=== PATIENT | male | born 1970 | race Caucasian/White ===

== ENCOUNTER 2016-06-06 20:03 | Emergency (ER) | payer OTHER ==
[2016-06-06 20:24] VITALS: BP 137/88; PULSE 96; O2SAT 100
[2016-06-06 21:01] LABS: BASOPHIL % 0.2 % (0.0-0.4); Eosinophil % 1.5 % (0.00-5.0); Granulocytes % 67.5 % (36.0-66.0); Lymphocytes % 21.4 % (24.0-44.0); Mean Cell Volume 93.1 fl (78-100); Mean Platelet Volume 9.9 fl (6-9.5); Monocytes % 9.4 % (0.0-12.0); Platelet Count 296 K/mm3 (150-450); Red Blood Count 4.35 M/mm3 (4.1-5.6); Red Cell Distribution Width 13.2 % (11.5-14.0); White Blood Count 10.9 K/mm3 (4.0-10.5)
[2016-06-06] MEDS ORDERED: MORPHINE SULFATE 10 MG/ML IV ONE (21:02)
[2016-06-06] MEDS ORDERED: Adacel Vial IM ONE ×2 (21:02→21:11)
[2016-06-06] MEDS ORDERED: XYLOCAINE 1%/Epi 1:100000 MDV 20 ML IJ ONE (21:02)
[2016-06-06] MEDS ORDERED: Vibramycin 100 MG PO ONE (21:02)
[2016-06-06] MEDS ORDERED: BENADRYL 50 MG/ML IV ONE (21:02)
[2016-06-06] MEDS ORDERED: Vibramycin 100 MG ONE (21:09)
[2016-06-06] MEDS ORDERED: XYLOCAINE 1%/Epi 1:100000 MDV 20 ML ONE (21:09)
[2016-06-06] MEDS ORDERED: BENADRYL 50 MG/ML ONE (21:09)
[2016-06-06] MEDS ORDERED: MORPHINE SULFATE 10 MG/ML ONE (21:10)
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
[2016-06-06 21:15] LABS: ALBUMIN 4.1 g/dL (3.4-5.0); ALKALINE PHOSPHATASE 55 U/L (46-116); BILIRUBIN,TOTAL 0.3 mg/dL (0.2-1.0); BLOOD UREA NITROGEN 9 mg/dL (9-20); CHLORIDE 102 mEq/L (98-107); Carbon Dioxide 29.3 mEq/L (21-32); Glucose 98 MG/DL (70-110); Potassium 3.5 mEq/L (3.5-5.1); SGOT/AST 16 U/L (15-37); SGPT/ALT 16 U/L (12-78); SODIUM 142 mEq/L (136-145)
[2016-06-06] MEDS ORDERED: NORCO 5/325 MG PO ONE (21:59)
[2016-06-06] MEDS ORDERED: BACIGUENT PACKET ONE (22:18)
[2016-06-06] MEDS ORDERED: NORCO 5/325 MG ONE (22:19)
[2016-06-06] MEDS ORDERED: BACIGUENT PACKET TP ONE (22:29)
--- NOTE | 2016-06-07 08:47 | XRAY ---
Indication: Cutaneous abscess. Comparison: None AP/lateral right knee intact with posterior fabella. No other bony, articular, or soft tissue abnormalities.
== END 2016-06-06 22:30 | disposition home or self-care (01) ==
LOC: ED 20:03
PROC: 0H9KXZZ Drainage of Right Lower Leg Skin, External Approach (ICD-10-PCS; principal; 2016-06-06)
DX: L02.415 Cutaneous abscess of right lower limb (principal)
CPT/HCPCS: 10160; 36000; 36415; 73560; 80053; 83605; 85025; 87040; 87070; 87077; 87186; 90471; 90715; 96374; 96375; 99284; J1200; J2270; A9270-GY

== ENCOUNTER 2016-12-28 00:02 | Emergency (ER) | payer OTHER ==
[2016-12-28] MEDS ORDERED: Xylocaine 2%-Epi 1:100,000 MDV IJ ONE ×2 (00:20→00:43)
[2016-12-28] MEDS ORDERED: BACTRIM DS TABLET PO ONE ×2 (00:20→00:42)
[2016-12-28] MEDS ORDERED: NORCO 5/325 MG PO ONE (00:22)
[2016-12-28] MEDS ORDERED: NORCO 5/325 MG ONE (00:43)
--- NOTE | 2016-12-28 00:43 | ERPHSYRPT ---
- History of Present Illness Time Seen by Provider: 12/28/16 00:04 Source: patient Patient Subjective Stated Complaint: pt states he has an abcess under his lt arm Triage Nursing Assessment: pt alert and oriented, asnwers questions approp. pt ambultory with steady gait noted, respirations nonlabored with lungs cta. red raised area with white center under lt axilla, warmth and tenderness noted to area. Physician History: CC: boil Hx: 46 y/o patient with hx of boils. He has new boil in the left chest wall. He has popped it off and on. It is more red and sore. Tetanus up to date. No other complaints. No fever. His knee heeled well after I&D thru ER. Quality: painful Allergies/Adverse Reactions: tramadol Allergy (Verified 12/28/16 00:13) Hx Tetanus, Diphtheria Vaccination/Date Given: Yes (2016) Hx Influenza Vaccination/Date Given: No Hx Pneumococcal Vaccination/Date Given: No Immunizations Up to Date: Yes - Review of Systems Constitutional: No Fever Skin: Skin Lesions (boils) Neurological: No Focal Weakness, No Parasthesia - Past Medical History Pertinent Past Medical History: Yes Cardiac History: Hypertension GI Medical History: Hernia Other Medical History: abcesses - Past Surgical History Past Surgical History: Yes Musculoskeletal: Orthopedic Surgery Other Surgical History: hx of fx lt arm - Social History Smoking Status: Current every day smoker How long have you smoked: 27 Exposure to second hand smoke: Yes Drug Use: none Patient Lives Alone: No - Nursing Vital Signs Nursing Vital Signs: Initial Vital Signs Temperature 97.8 F 12/28/16 00:06 Pulse Rate 89 12/28/16 00:06 Respiratory Rate 18 12/28/16 00:06 Blood Pressure 168/83 12/28/16 00:06 O2 Sat by Pulse Oximetry 97 12/28/16 00:06 Pain Scale Pain Intensity 8 - Physical Exam General Appearance: alert Ears, Nose, Throat Exam: moist mucous membranes Neurologic Exam: alert, oriented x 3, cooperative Skin Exam: warm, dry, other (1cm boil left lateral upper chest wall with mild erythema and pointing) SpO2 Interpretation: normal SpO2: 97 Oxygen Delivery: Room Air Procedures - Incision and Drainage Site: left lateral chest wall Anesthesia: 2% Lidocaine (with epi) cc's of anesthesia: 3 Blade Size: scalpel I & D Procedure: betadine prep, sterile dressing applied Results: moderate amount pus - Course Nursing assessment & vital signs reviewed: Yes Ordered Tests: Active Orders 24 hr Category Date Time Status Wound Care STAT Care 12/28/16 00:20 Active Medication Summary Discontinued Medications Generic Name Dose Route Start Last Admin Trade Name Freq PRN Reason Stop Dose Admin Hydrocodone Bitart/Acetaminophen 1 tab 12/28/16 00:22 12/28/16 00:44 [place] 5/325 Mg PO 12/28/16 00:23 1 tab STAT ONE Administration Hydrocodone Bitart/Acetaminophen Confirm 12/28/16 00:43 [place] 5/325 Mg Administered 12/28/16 00:44 Dose 1 tab .ROUTE .STK-MED ONE Lidocaine/Epinephrine 5 ml 12/28/16 00:20 Xylocaine 2%-Epi 1:100,000 Mdv IJ 12/28/16 00:21 STAT ONE Lidocaine/Epinephrine Confirm 12/28/16 00:43 Xylocaine 2%-Epi 1:100,000 Mdv Administered 12/28/16 00:44 Dose 5 ml IJ .STK-MED ONE Trimethoprim/Sulfamethoxazole 1 tab 12/28/16 00:20 12/28/16 00:44 Bactrim Ds Tablet PO 12/28/16 00:21 1 tab STAT ONE Administration Trimethoprim/Sulfamethoxazole Confirm 12/28/16 00:42 Bactrim Ds Tablet Administered 12/28/16 00:43 Dose 1 tab PO .STK-MED ONE - Progress Progress Note: 12/28/16 00:43 Discussed I&D. He understands risks and chose to proceed. Counseled pt/family regarding: diagnosis, need for follow-up - Departure Time of Disposition: 00:58 Departure Disposition: Home Clinical Impression: abscess left chest wall cutaneous Condition: Stable Critical Care Time: No Referrals: PORFIRIO AMARO [NON-STAFF PHY W/O PRIVILEGES] - Instructions: Methicillin-Resistant Staph Infection (MRSA), Incision and Drainage of a Skin Abscess Additional Instructions: Rx bactrim Warm compress 4 times a day Rx norco- no driving tonite or while taking Prescriptions: Hydrocodone/APAP 5/325 [[place] 5/325 mg] 1 each PO Q4-6HPRN PRN #10 tablet PRN Reason: Pain Smz/Tmp Ds Tablet [Bactrim Ds Tablet] 1 udtab PO BID #20 tablet
[2016-12-28 01:13] VITALS: BP 130/79; PULSE 82; O2SAT 96
== END 2016-12-28 01:14 | disposition home or self-care (01) ==
LOC: ED 00:02
PROC: 0H95XZZ Drainage of Chest Skin, External Approach (ICD-10-PCS; principal; 2016-12-28)
DX: L02.213 Cutaneous abscess of chest wall (principal)
CPT/HCPCS: 10060; 96372; 99283; 99284; A9270-GY

== ENCOUNTER 2017-01-29 21:58 | Emergency (ER) | payer OTHER ==
[2017-01-29] MEDS ORDERED: TYLENOL 325 MG PO STA (22:33)
[2017-01-29] MEDS ORDERED: TYLENOL 325 MG ONE (22:37)
--- NOTE | 2017-01-29 22:41 | ERPHSYRPT ---
- History of Present Illness Time Seen by Provider: 01/29/17 22:16 Source: patient Exam Limitations: clinical condition Patient Subjective Stated Complaint: pt states he has been having pain in his lt knee for approx 1 week that has been getting worse. states pain is stabbing and worse with pressure on lt leg Triage Nursing Assessment: pt alert and oriented, answers questions appop. pt ambultory with steady gait noted. respirations nonlabored with lungs cta. pedal pulse to lle wnl. Physician History: PATIENT COMPLAINS OF HAVING PAIN IN HIS LEFT KNEE FOR 3 WEEKS. DENIES INJURY OR TRAUMA. HAS PAIN ONLY WITH DIRECT PRESSURE KNEELING ONTO KNEE. AMBULATES WITHOUT PAIN. Occurred: other (3 WEEKS AGO) Quality: other (ONLY UPON KNEELING) Severity of Pain-Max: mild Severity of Pain-Current: mild Lower Extremities Pain: knee: left Modifying Factors: Improves With: other (DIRECT PRESSURE ONTO KNEE) Associated Symptoms: none Allergies/Adverse Reactions: tramadol Allergy (Verified 12/28/16 00:13) Hx Tetanus, Diphtheria Vaccination/Date Given: Yes (2016) Hx Influenza Vaccination/Date Given: No Hx Pneumococcal Vaccination/Date Given: No Immunizations Up to Date: Yes - Review of Systems Musculoskeletal: Joint Pain, Joint Swelling - Past Medical History Pertinent Past Medical History: Yes Cardiac History: Hypertension GI Medical History: Hernia Other Medical History: abcesses - Past Surgical History Past Surgical History: Yes Musculoskeletal: Orthopedic Surgery Other Surgical History: hx of fx lt arm - Social History Smoking Status: Current every day smoker How long have you smoked: 27 Exposure to second hand smoke: Yes Drug Use: none Patient Lives Alone: No - Nursing Vital Signs Nursing Vital Signs: Initial Vital Signs Temperature 97.8 F 01/29/17 22:09 Pulse Rate 86 01/29/17 22:09 Respiratory Rate 18 01/29/17 22:09 Blood Pressure 145/72 01/29/17 22:09 O2 Sat by Pulse Oximetry 97 01/29/17 22:09 Pain Scale Pain Intensity 8 - Physical Exam General Appearance: alert Eyes, Ears, Nose, Throat Exam: moist mucous membranes Neck Exam: non-tender, supple Cardiovascular/Respiratory Exam: chest non-tender, normal breath sounds, regular rate/rhythm, no respiratory distress Gastrointestinal/Abdominal Exam: non-tender, guarding Back Exam: normal inspection, No vertebral tenderness Knees Exam: left knee: pain, soft tissue tenderness, swelling (INFRAPATELLA TENDERNESS, MINIMAL SWELLING, NO JOINT LAXITY UPON VARUS./VALGUS STRESS) DTR - Lower Extremities Exam: knee (R): 2+, knee (L): 2+, ankle (R): 2+, ankle ( L): 2+ Neuro/Tendon Exam: normal sensation, normal motor functions Mental Status Exam: alert, oriented x 3, cooperative Skin Exam: normal color, warm, dry SpO2: 97 Oxygen Delivery: Room Air - Radiology Exams Left Knee X-ray Interpretation: Interpreted by me (NO EVIDENCE OF FRACTURE OR DISLOCATION) Ordered Tests: Active Orders 24 hr Category Date Time Status KNEE (3 VIEWS) Stat Exams 01/29/17 22:34 Ordered Medication Summary Generic Name Dose Route Start Last Admin Trade Name Leelee PRN Reason Stop Dose Admin Acetaminophen 650 mg 01/29/17 22:33 Tylenol 325 Mg PO 01/29/17 22:34 STAT STA - Progress Progress Note: 01/29/17 22:46 ADMINISTERED TYLENOL 650MG ORALLY Counseled pt/family regarding: diagnosis, need for follow-up - Departure Time of Disposition: 22:55 Departure Disposition: Home Clinical Impression: Left knee pain Condition: Stable Critical Care Time: No Referrals: RADHA BECKHAM [Primary Care Provider] - Additional Instructions: TORADOL 10MG EVERY 6 HOURS FOR PAIN NEEDED. FOR ONSET OF PAIN UPON WEIGHT BEARING OBTAIN CRUTCHES. CONSULT YOUR PRIMARY CARE PHYSICIAN FOR EVALUATION IN 1 WEEK. Prescriptions: Ketorolac Tromethamine [Toradol] 10 mg PO Q6HPRN PRN #20 tablet PRN Reason: Pain
[2017-01-29 22:59] VITALS: BP 132/70; PULSE 80; O2SAT 98
--- NOTE | 2017-01-30 09:04 | XRAY ---
Indication: Left knee pain 2 weeks. No known injury. Comparison: None 3 views of the left knee intact with tiny proximal tibial bone island and a posterior fabella. No other bony, articular, or soft tissue abnormalities.
== END 2017-01-29 22:55 | disposition home or self-care (01) ==
LOC: ED 21:58
DX: M25.562 Pain in left knee (principal)
CPT/HCPCS: 73562; 99283; A9270-GY

== ENCOUNTER 2019-05-13 11:50 | Emergency (ER) | payer SELFPAY ==
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
[2019-05-13] MEDS ORDERED: BACIGUENT PACKET TP ONE (12:16)
[2019-05-13] MEDS ORDERED: BACIGUENT PACKET ONE (12:18)
--- NOTE | 2019-05-13 13:12 | XRAY ---
Indication: Pain and laceration following head injury. Multiple contiguous axial images obtained through the head without contrast. Comparison: None Normal appearing brain parenchyma, ventricles, and bony calvarium. Small anterior scalp laceration with cutaneous justina near the vertex. Visualized paranasal sinuses are clear. There is partial opacification of the left middle ear favoring otitis media. Impression: Small scalp laceration and left otitis media. Remaining CT head without contrast exam is normal.
[2019-05-13 13:13] VITALS: BP 108/44; PULSE 60; O2SAT 97
== END 2019-05-13 13:14 | disposition home or self-care (01) ==
LOC: ED 11:50
DX: S01.01XA Laceration without foreign body of scalp, initial encounter (principal); H66.92 Otitis media, unspecified, left ear; I10 Essential (primary) hypertension
CPT/HCPCS: 12001; 70450; 99283; A9270-GY

== ENCOUNTER 2019-09-20 18:24 | Emergency (ER) | payer MEDICAID ==
--- NOTE | 2019-09-20 19:13 | ERPHSYRPT ---
- History of Present Illness Time Seen by Provider: 09/20/19 18:42 Source: patient Exam Limitations: no limitations Patient Subjective Stated Complaint: Pt states "I am not sure what I did, I noticed some bruising to my left ankle and it hurts pretty bad." Triage Nursing Assessment: Pt presented alert and oriented X 3, skin pwd. PT able to ambulates with an upright steady gait, able to speak in clear full sentences pt has bruising noted to left medial ankle no swelling noted. Physician History: 49 years old male with history of coronary artery disease status post stenting, hypertension, hyperlipidemia works on a [employer] with tight shoes on all day long presented in the ER with chief complaint of left ankle pain with some noticeable bruising on the medial side of the foot this evening. Patient reports he is on his feet all day long going up and down and is worried about getting a stress fracture. He reports noticing pain for the last couple of days mild to moderate intensity, dull aching to sharp in nature without any significant aggravating factor but at times it gets aggravated with putting shoes shoes on and better with taking off. Denies any swelling of the foot/ankle. Does not remember any trauma or fall, or bending foot. Denies any difficulty ambulation or gait change. Quality: intermittent Severity of Pain-Max: moderate Severity of Pain-Current: mild Lower Extremities Pain: ankle: left Modifying Factors: Improves With: immobilization, movement, rest Associated Symptoms: No unable to bear weight Allergies/Adverse Reactions: tramadol Allergy (Verified 12/28/16 00:13) Home Medications: Atorvastatin Calcium 80 mg PO DAILY 09/20/19 [History] Clopidogrel Bisulfate [Clopidogrel] 75 mg PO DAILY 09/20/19 [History] Loratadine 10 mg PO DAILY 09/20/19 [History] Metoprolol Tartrate 25 mg PO DAILY 09/20/19 [History] Montelukast Sodium 10 mg [Singulair 10 MG] 10 mg PO DAILY 09/20/19 [History] lisinopriL [Lisinopril] 5 mg PO DAILY 09/20/19 [History] Hx Tetanus, Diphtheria Vaccination/Date Given: Yes Hx Influenza Vaccination/Date Given: No Hx Pneumococcal Vaccination/Date Given: No Immunizations Up to Date: Yes Travel Risk - International Travel Have you traveled outside of the country in past 3 weeks: No - Coronavirus Screening Are you exhibiting any of the following symptoms?: No Close contact with a COVID-19 positive Pt in past 14-21 Days: No - Review of Systems Constitutional: No Symptoms Eyes: No Symptoms Ears, Nose, & Throat: No Symptoms Respiratory: No Symptoms Cardiac: No Symptoms Abdominal/Gastrointestinal: No Symptoms Musculoskeletal: Joint Pain Skin: No Symptoms Neurological: No Symptoms Psychological: No Symptoms - Past Medical History Pertinent Past Medical History: Yes Neurological History: No Pertinent History ENT History: No Pertinent History Cardiac History: Hypertension Respiratory History: No Pertinent History Endocrine Medical History: No Pertinent History Musculoskeletal History: No Pertinent History GI Medical History: Hernia History: No Pertinent History Psycho-Social History: No Pertinent History Male Reproductive Disorders: No Pertinent History Other Medical History: abcesses - Past Surgical History Past Surgical History: Yes Neuro Surgical History: No Pertinent History Cardiac: No Pertinent History Respiratory: No Pertinent History Gastrointestinal: No Pertinent History Genitourinary: No Pertinent History Musculoskeletal: Orthopedic Surgery Male Surgical History: No Pertinent History Other Surgical History: hx of fx lt arm - Social History Smoking Status: Former smoker How long have you smoked: 27 Exposure to second hand smoke: Yes Drug Use: none Patient Lives Alone: No - Nursing Vital Signs Nursing Vital Signs: Initial Vital Signs Temperature 98.4 F 09/20/19 18:29 Pulse Rate 80 09/20/19 18:29 Respiratory Rate 22 09/20/19 18:29 Blood Pressure 129/70 09/20/19 18:29 O2 Sat by Pulse Oximetry 98 09/20/19 18:29 Pain Scale Pain Intensity 6 - Physical Exam General Appearance: no apparent distress Eyes, Ears, Nose, Throat Exam: pharynx normal Neck Exam: normal inspection, full range of motion Cardiovascular/Respiratory Exam: normal breath sounds, regular rate/rhythm Back Exam: normal inspection, normal range of motion Legs Exam: bilateral leg: non-tender, normal inspection, normal range of motion, no evidence of injury Ankle Exam: right ankle: non-tender, normal inspection, no evidence of injury, left ankle: pain, soft tissue tenderness, other (Bruising on the medial side of calcaneum/talus/navicular area with minimal tenderness. No swelling. Possible spider veins busted), bilateral ankle: normal range of motion Neuro/Tendon Exam: normal sensation, normal motor functions, normal tendon functions Mental Status Exam: alert, oriented x 3 Skin Exam: normal color SpO2 Interpretation: normal SpO2: 98 O2 Delivery: Room Air - Course Nursing assessment & vital signs reviewed: Yes Ordered Tests: Active Orders 24 hr Category Date Time Status ANKLE (3 VIEWS) Stat Exams 09/20/19 18:40 Taken - Progress Progress: unchanged Progress Note: 09/20/19 19:17 He is offered pain medication but refused. I did not appreciate any acute fracture dislocation. Patient does not have any point bony tenderness but has some bruising which I believe patient has but states spider veins and also because of tight shoes is having some compression and being on Plavix makes it easy to bruise. Recommended taking Tylenol/ibuprofen and outpatient follow-up. Counseled pt/family regarding: diagnosis, need for follow-up, rad results - Departure Departure Disposition: Home Clinical Impression: Left ankle pain Qualifiers: Chronicity: acute Qualified Code(s): M25.572 - Pain in left ankle and joints of left foot Condition: Stable Critical Care Time: No Referrals: RADHA BECKHAM [Primary Care Provider] - Follow Up with PCP/3 days Instructions: Ankle Sprain (DC) Additional Instructions: Take Tylenol/ibuprofen as needed. Follow-up with your primary care for reevaluation. Return to ER for any worsening.
[2019-09-20 19:33] VITALS: BP 100/60; PULSE 68; O2SAT 99
--- NOTE | 2019-09-21 08:37 | XRAY ---
Indication: Pain and bruising. No known injury. Comparison: None 3 view left ankle obtained. No bony, articular, or soft tissue abnormalities.
== END 2019-09-20 19:38 | disposition home or self-care (01) ==
LOC: ED 18:24
DX: Z79.899 Other long term (current) drug therapy (principal); S90.02XA Contusion of left ankle, initial encounter; I25.810 Atherosclerosis of coronary artery bypass graft(s) without angina pectoris; I10 Essential (primary) hypertension; E78.5 Hyperlipidemia, unspecified; X50.3XXA Overexertion from repetitive movements, initial encounter; X50.0XXA Overexertion from strenuous movement or load, initial encounter; Y93.89 Activity, other specified; Y92.89 Other specified places as the place of occurrence of the external cause; Y99.0 Civilian activity done for income or pay
CPT/HCPCS: 73610; 99283

== ENCOUNTER 2020-06-27 14:57 | Emergency (ER) | payer SELFPAY ==
[2020-06-27] MEDS ORDERED: TORAdol 30 mg Injection IV ONE (15:17)
[2020-06-27] MEDS ORDERED: Sodium Chloride 0.9% 1000 ML 1,000 ML IV STA (15:17)
[2020-06-27] MEDS ORDERED: Norflex 60 MG/2 ML IV ONE (15:18)
--- NOTE | 2020-06-27 15:22 | ERPHSYRPT ---
- History of Present Illness Time Seen by Provider: 06/27/20 15:00 Source: patient Exam Limitations: no limitations Patient Subjective Stated Complaint: Pt states that he has become very fatigue, nauseous, cramp in the left side of neck, cough and wheezing Triage Nursing Assessment: Pt brought to the ER by his girlfriend, laila wnl, rates pain in neck as 9/10, cough sputum had been green and is now white, pulses normal, skin n/w/d, denies fever, doesn't appear to be in any distress Physician History: 50 years old male with history of coronary artery disease status post stenting, hypertension, hyperlipidemia, tobacco abuse presented in the ER with chief complaint of flulike symptoms for the last 4 days. Patient reports generalized body aches and pains which is aggravated with activity and feeling fatigued tir ed and no energy to do his routine activities. Patient reports walking few steps make him tired as if he has 10 miles marathon run. Complaining of muscle cramps specially in the left lateral neck and back. Also report having cough productive of clear to yellow sputum initially but since yesterday is having dark green sputum production moderate in amount with no hemoptysis. No fever or chills reported. Denies any sick contact. Timing/Duration: day(s) (4), gradual onset, worse Cough Quality/Degree: moderate, productive cough Modifying Factors: Improves With: albuterol inhaler, rest. Worsens With: activity, coughing, exertion Associated Symptoms: chest pain/soreness, cough, headache, muscle aches, nasal congestion, sore throat, wheezing, No fever Allergies/Adverse Reactions: tramadol Allergy (Verified 06/27/20 15:14) Home Medications: Atorvastatin Calcium 80 mg PO DAILY 09/20/19 [History] Clopidogrel Bisulfate [Clopidogrel] 75 mg PO DAILY 09/20/19 [History] Loratadine 10 mg PO DAILY 09/20/19 [History] Metoprolol Tartrate 25 mg PO DAILY 09/20/19 [History] Montelukast Sodium 10 mg [Singulair 10 MG] 10 mg PO DAILY 09/20/19 [History] lisinopriL [Lisinopril] 5 mg PO DAILY 09/20/19 [History] Albuterol Sulfate [Albuterol Sulfate Hfa] 1 inh PO UD 06/27/20 [History] Aspirin 81 gm Chew [Baby Aspirin 81 mg Chew] 81 mg PO DAILY 06/27/20 [History] Hx Tetanus, Diphtheria Vaccination/Date Given: Yes Hx Influenza Vaccination/Date Given: No Hx Pneumococcal Vaccination/Date Given: No Travel Risk - International Travel Have you traveled outside of the country in past 3 weeks: No - Coronavirus Screening Are you exhibiting any of the following symptoms?: No Close contact with a COVID-19 positive Pt in past 14-21 Days: No - Vaccine Status Have you recieved a Covid-19 vaccination: No - Review of Systems Constitutional: Fatigue, Weakness Eyes: No Symptoms Ears, Nose, & Throat: Nose Congestion Respiratory: Cough, Dyspnea, Dyspnea on Exertion (MACIEL), Wheezing Cardiac: No Symptoms Abdominal/Gastrointestinal: No Symptoms Genitourinary Symptoms: No Symptoms Musculoskeletal: Myalgias Skin: No Symptoms Neurological: No Symptoms Psychological: No Symptoms Endocrine: No Symptoms Hematologic/Lymphatic: No Symptoms Immunological/Allergic: No Symptoms - Past Medical History Pertinent Past Medical History: Yes Neurological History: No Pertinent History ENT History: No Pertinent History Cardiac History: Hypertension Respiratory History: No Pertinent History Endocrine Medical History: No Pertinent History Musculoskeletal History: No Pertinent History GI Medical History: Hernia History: No Pertinent History Psycho-Social History: No Pertinent History Male Reproductive Disorders: No Pertinent History Other Medical History: abcesses - Past Surgical History Past Surgical History: Yes Neuro Surgical History: No Pertinent History Cardiac: No Pertinent History Respiratory: No Pertinent History Gastrointestinal: No Pertinent History Genitourinary: No Pertinent History Musculoskeletal: Orthopedic Surgery Male Surgical History: No Pertinent History Other Surgical History: hx of fx lt arm - Social History Smoking Status: Former smoker How long have you smoked: 27 Exposure to second hand smoke: Yes Drug Use: none Patient Lives Alone: No - Nursing Vital Signs Nursing Vital Signs: Initial Vital Signs Temperature 97.8 F 06/27/20 15:02 Pulse Rate 78 06/27/20 15:02 Blood Pressure 144/68 06/27/20 15:02 O2 Sat by Pulse Oximetry 98 06/27/20 15:02 Pain Scale Pain Intensity 2 - Physical Exam General Appearance: no apparent distress, alert Eye Exam: PERRL/EOMI, eyes nml inspection Ears, Nose, Throat Exam: normal ENT inspection, TMs normal, pharyngeal erythema Neck Exam: normal inspection, non-tender, supple, full range of motion, No midline tenderness Respiratory Exam: normal breath sounds, lungs clear, No chest tenderness Cardiovascular Exam: regular rate/rhythm, normal heart sounds Gastrointestinal/Abdomen Exam: soft, normal bowel sounds, No tenderness Back Exam: normal inspection, normal range of motion Extremity Exam: normal inspection, normal range of motion, pelvis stable Neurologic Exam: alert, oriented x 3, cooperative, medical staff coordinator II-XII nml as tested Skin Exam: normal color SpO2 Interpretation: normal SpO2: 98 O2 Delivery: Room Air - Course EKG Interpreted by Me: RATE (72), Sinus Rhythm, NORMAL AXIS, NORMAL INTERVALS, NORMAL QRS Ordered Tests: Active Orders 24 hr Category Date Time Status EKG-ER Only STAT Care 06/27/20 15:17 Completed IV Insertion STAT Care 06/27/20 15:17 Completed CHEST 1 VIEW (PORTABLE) Stat Exams 06/27/20 15:17 Completed CBC W DIFF Stat Lab 06/27/20 15:42 Completed CMP Stat Lab 06/27/20 15:42 Completed INFLUENZA A+B MARY LOU Stat Lab 06/27/20 16:36 Completed Lactic Acid Stat Lab 06/27/20 15:17 Completed TROPONIN Q3H Lab 06/27/20 15:42 Completed UA W/RFX UR CULTURE Stat Lab 06/27/20 15:50 Completed Medication Summary Discontinued Medications Generic Name Dose Route Start Last Admin Trade Name Kenanq PRN Reason Stop Dose Admin Sodium Chloride 1,000 mls @ 999 mls/hr 06/27/20 15:17 06/27/20 16:41 Sodium Chloride 0.9% 1000 Ml IV 06/27/20 16:17 Infused .Q1H1M STA Infusion Sodium Chloride Confirm 06/27/20 15:26 Sodium Chloride 0.9% 1000 Ml Administered 06/27/20 15:27 Dose 1,000 mls @ ud .ROUTE .STK-MED ONE Ketorolac Tromethamine 30 mg 06/27/20 15:17 06/27/20 15:28 Toradol 30 Mg Injection IV 06/27/20 15:18 30 mg STAT ONE Administration Ketorolac Tromethamine Confirm 06/27/20 15:26 Toradol 30 Mg Injection Administered 06/27/20 15:27 Dose 30 mg .ROUTE .STK-MED ONE Orphenadrine Citrate 60 mg 06/27/20 15:18 06/27/20 15:27 Norflex 60 Mg/2 Ml IV 06/27/20 15:19 60 mg STAT ONE Administration Orphenadrine Citrate Confirm 06/27/20 15:26 Norflex 60 Mg/2 Ml Administered 06/27/20 15:27 Dose 60 mg .ROUTE .STK-MED ONE Lab/Rad Data: Laboratory Result Diagrams 06/27/20 15:42 06/27/20 15:42 Laboratory Results 06/27/20 06/27/20 06/27/20 Range/Units 16:36 15:50 15:42 WBC (4.0-10.5) K/mm3 RBC (4.1-5.6) M/mm3 Hgb (12.5-18.0) gm/dl Hct (42-50) % MCV (78-100) fl MCH (26-32) pg MCHC (32-36) g/dl RDW (11.5-14.0) % Plt Count (150-450) K/mm3 MPV (7.5-11.0) fl Gran % (36.0-66.0) % Eos # (Auto) (0-0.5) Absolute Lymphs (auto) (1.0-4.6) Absolute Monos (auto) (0.0-1.3) Lymphocytes % (24.0-44.0) % Monocytes % (0.0-12.0) % Eosinophils % (0.00-5.0) % Basophils % (0.0-0.4) % Absolute Granulocytes (1.4-6.9) Basophils # (0-0.4) Sodium (137-145) mmol/L Potassium (3.5-5.1) mmol/L Chloride (98-107) mmol/L Carbon Dioxide (22-30) mmol/L Anion Gap (5-15) MEQ/L BUN (9-20) mg/dL Creatinine (0.66-1.25) mg/dL Estimated GFR ML/MIN Glucose (74-106) mg/dL Lactic Acid (0.4-2.0) Calcium (8.4-10.2) mg/dL Total Bilirubin (0.2-1.3) mg/dL AST (17-59) U/L ALT (0-50) U/L Alkaline Phosphatase (38-126) U/L Troponin I < 0.012 (0.000-0.034) ng/mL Serum Total Protein (6.3-8.2) g/dL Albumin (3.5-5.0) g/dL Urine Color YELLOW (YELLOW) Urine Appearance CLOUDY (CLEAR) Urine pH 7.0 (5-6) Ur Specific [place] 1.021 (1.005-1.025) Urine Protein NEGATIVE (Negative) Urine Ketones NEGATIVE (NEGATIVE) Urine Blood NEGATIVE (0-5) Bashir/ul Urine Nitrite NEGATIVE (NEGATIVE) Urine Bilirubin NEGATIVE (NEGATIVE) Urine Urobilinogen 2 (0-1) mg/dL Ur Leukocyte Esterase NEGATIVE (NEGATIVE) Urine WBC (Auto) NONE (0-5) /HPF Urine RBC (Auto) NONE (0-2) /HPF U Epithel Cells (Auto) NONE (FEW) /HPF Urine Bacteria (Auto) NONE (NEGATIVE) /HPF Urine Culture Reflexed NO (NO) Urine Glucose NEGATIVE (NEGATIVE) mg/dL Influenza Type A Ag NEGATIVE (NEGATIVE) Influenza Type B Ag NEGATIVE (NEGATIVE) 06/27/20 06/27/20 06/27/20 Range/Units 15:42 15:42 15:17 WBC 8.4 (4.0-10.5) K/mm3 RBC 4.34 (4.1-5.6) M/mm3 Hgb 13.1 (12.5-18.0) gm/dl Hct 40.6 L (42-50) % MCV 93.5 (78-100) fl MCH 30.2 (26-32) pg MCHC 32.3 (32-36) g/dl RDW 13.6 (11.5-14.0) % Plt Count 278 (150-450) K/mm3 MPV 9.7 (7.5-11.0) fl Gran % 56.9 (36.0-66.0) % Eos # (Auto) 0.20 (0-0.5) Absolute Lymphs (auto) 2.49 (1.0-4.6) Absolute Monos (auto) 0.90 (0.0-1.3) Lymphocytes % 29.6 (24.0-44.0) % Monocytes % 10.7 (0.0-12.0) % Eosinophils % 2.4 (0.00-5.0) % Basophils % 0.4 (0.0-0.4) % Absolute Granulocytes 4.80 (1.4-6.9) Basophils # 0.03 (0-0.4) Sodium 138 (137-145) mmol/L Potassium 4.1 (3.5-5.1) mmol/L Chloride 99 (98-107) mmol/L Carbon Dioxide 30 (22-30) mmol/L Anion Gap 13.6 (5-15) MEQ/L BUN 15 (9-20) mg/dL Creatinine 0.94 (0.66-1.25) mg/dL Estimated GFR > 60.0 ML/MIN Glucose 99 (74-106) mg/dL Lactic Acid 1.4 (0.4-2.0) Calcium 9.3 (8.4-10.2) mg/dL Total Bilirubin 0.40 (0.2-1.3) mg/dL AST 32 (17-59) U/L ALT 36 (0-50) U/L Alkaline Phosphatase 58 (38-126) U/L Troponin I (0.000-0.034) ng/mL Serum Total Protein 6.9 (6.3-8.2) g/dL Albumin 4.0 (3.5-5.0) g/dL Urine Color (YELLOW) Urine Appearance (CLEAR) Urine pH (5-6) Ur Specific [place] (1.005-1.025) Urine Protein (Negative) Urine Ketones (NEGATIVE) Urine Blood (0-5) Bashir/ul Urine Nitrite (NEGATIVE) Urine Bilirubin (NEGATIVE) Urine Urobilinogen (0-1) mg/dL Ur Leukocyte Esterase (NEGATIVE) Urine WBC (Auto) (0-5) /HPF Urine RBC (Auto) (0-2) /HPF U Epithel Cells (Auto) (FEW) /HPF Urine Bacteria (Auto) (NEGATIVE) /HPF Urine Culture Reflexed (NO) Urine Glucose (NEGATIVE) mg/dL Influenza Type A Ag (NEGATIVE) Influenza Type B Ag (NEGATIVE) - Progress Progress: improved Air Movement: good Progress Note: 06/27/20 16:27 50 years old is evaluated for flulike symptoms. Is given symptomatic treatment, feeling better on reevaluation. Work-up is grossly negative for any acute findings. COVID-19 testing is pending. Recommended supportive care. Her symptoms does not seem cardiac in etiology at all but more of infectious. Blood Culture(s) Obtained: No Antibiotics given: No Counseled pt/family regarding: lab results, diagnosis, need for follow-up, rad results - Departure Departure Disposition: Home Clinical Impression: Viral syndrome Condition: Stable Critical Care Time: No Referrals: RADHA BECKHAM [Primary Care Provider] - (1-2 days for reevaluation) Instructions: Viral Syndrome (DC) Additional Instructions: Take Tylenol as needed for body aches/pains. Continue with nebulizer and inhaler as recommended. Follow-up with primary care for reevaluation. Return to ER for worsening cough, body aches or if develop fever chills etc. Prescriptions: Methocarbamol [Robaxin-750] 750 mg PO TID 4 Days #12 tablet
[2020-06-27] MEDS ORDERED: Sodium Chloride 0.9% 1000 ML 1,000 ML ONE (15:26)
[2020-06-27] MEDS ORDERED: TORAdol 30 mg Injection ONE (15:26)
[2020-06-27] MEDS ORDERED: Norflex 60 MG/2 ML ONE (15:26)
[2020-06-27 15:43] LABS: BASOPHIL % 0.4 % (0.0-0.4); Basophil (Absolute #) 0.03 (0-0.4); Eosinophil % 2.4 % (0.00-5.0); Hematocrit 40.6 % (42-50); Hemoglobin 13.1 gm/dl (12.5-18.0); Lymphocyte (Absolute #) 2.49 (1.0-4.6); Lymphocytes % 29.6 % (24.0-44.0); Mean Cell Volume 93.5 fl (78-100); Mean Corpuscular Hemoglobin 30.2 pg (26-32); Mean Corpuscular Hgb Concent. 32.3 g/dl (32-36); Mean Platelet Volume 9.7 fl (7.5-11.0); Monocytes % 10.7 % (0.0-12.0); Neutrophil % 56.9 % (36.0-66.0); Platelet Count 278 K/mm3 (150-450); Red Blood Count 4.34 M/mm3 (4.1-5.6); Red Cell Distribution Width 13.6 % (11.5-14.0); White Blood Count 8.4 K/mm3 (4.0-10.5)
[2020-06-27 16:02] LABS: ALKALINE PHOSPHATASE 58 U/L (38-126); ANION GAP 13.6 MEQ/L (5-15); BLOOD UREA NITROGEN 15 mg/dL (9-20); CHLORIDE 99 mmol/L (98-107); Calcium 9.3 mg/dL (8.4-10.2); Carbon Dioxide 30 mmol/L (22-30); Creatinine 1 0.94 mg/dL (0.66-1.25); EST GLOMERULAR FILTRATION RATE > 60.0 ML/MIN; Glucose 99 mg/dL (74-106); Potassium 4.1 mmol/L (3.5-5.1); SGOT/AST 32 U/L (17-59); SGPT/ALT 36 U/L (0-50); SODIUM 138 mmol/L (137-145); Total Protein 6.9 g/dL (6.3-8.2)
[2020-06-27 16:04] VITALS: PULSE 68
[2020-06-27 16:11] LABS: Appearance CLOUDY (CLEAR); Bilirubin NEGATIVE (NEGATIVE); Blood NEGATIVE Ery/ul (0-5); Glucose NEGATIVE (NEGATIVE); Ketones NEGATIVE (NEGATIVE); Leukocyte Esterase NEGATIVE (NEGATIVE); Nitrite NEGATIVE (NEGATIVE); Protein,Urine Dip NEGATIVE (Negative); Specific Gravity 1.021 (1.005-1.025); Urobilinogen 2 mg/dL (0-1)
--- NOTE | 2020-06-27 16:14 | XRAY ---
Indication: Short of breath. Nausea. Pneumonia. Comparison: February 23, 2017. Portable apical lordotic chest demonstrates new subtle right upper lobe interstitial alveolar opacity. Remaining heart and lungs unremarkable with again incidental left lung calcified granulomas. Bony thorax intact.
[2020-06-27 16:47] VITALS: BP 122/59
[2020-06-27 17:02] LABS: INFLUENZA A NEGATIVE (NEGATIVE); INFLUENZA B NEGATIVE (NEGATIVE)
[2020-06-27 22:47] VITALS: O2SAT 98
== END 2020-06-27 16:47 | disposition home or self-care (01) ==
LOC: ED 14:57
DX: B34.9 Viral infection, unspecified (principal)
CPT/HCPCS: 36415; 71045; 80053; 81001; 83605; 84484; 85025; 87400; 93005; 96360; 96374; 96375; 99284; U0003; J1885; J2360

== ENCOUNTER 2021-05-20 20:20 | Emergency (ER) | payer BC ==
[2021-05-20] MEDS ORDERED: DELTASONE 20 MG PO ONE (20:56)
[2021-05-20] MEDS ORDERED: HYDROCODONE-ACETAMIN 2.5-108/5 ML SOLUTION PO STA (20:56)
[2021-05-20] MEDS ORDERED: HYDROCODONE-ACETAMIN 2.5-108/5 ML SOLUTION ONE (20:59)
[2021-05-20] MEDS ORDERED: DELTASONE 20 MG ONE (20:59)
--- NOTE | 2021-05-20 21:02 | ERPHSYRPT ---
- History of Present Illness Time Seen by Provider: 05/20/21 20:45 Source: patient Exam Limitations: no limitations Patient Subjective Stated Complaint: pt state "I have been coughing and wheezing bad. My girls was in here yesterday and was positive for Flu A." Triage Nursing Assessment: pt ambulated into the er; pt is axo x4; c/o cough; pt states 8/10 pain when coughing to chest and back; pt states he feels like he is wheezing; wheezing present in cira posterior lobes; clear lung sound in anterior lobes; dry hacking cough present; pt denies N/V/D; pt denies fever; afebrile; hypertensive Physician History: This is a 50-year-old white male who presents with 3-day history of cough and sore throat. His children were diagnosed with influenza A yesterday. He is wondering if he has a same thing, Covid or strep throat. He denies chest pain. He denies abdominal pain. He has had no nausea vomiting or diarrhea. He has not had fevers. Timing/Duration: day(s) (3) Cough Quality/Degree: moderate, dry cough Possible Cause: occasional episodes Modifying Factors: Improves With: coughing Associated Symptoms: shortness of breath, sore throat, wheezing Allergies/Adverse Reactions: tramadol Allergy (Verified 05/20/21 20:28) Home Medications: Atorvastatin Calcium 80 mg PO DAILY 09/20/19 [History] Clopidogrel Bisulfate [Clopidogrel] 75 mg PO DAILY 09/20/19 [History] Loratadine 10 mg PO DAILY 09/20/19 [History] Metoprolol Tartrate 25 mg PO DAILY 09/20/19 [History] Montelukast Sodium 10 mg [Singulair 10 MG] 10 mg PO DAILY 09/20/19 [History] lisinopriL [Lisinopril] 5 mg PO DAILY 09/20/19 [History] Albuterol Sulfate [Albuterol Sulfate Hfa] 1 inh PO UD 06/27/20 [History] Aspirin 81 gm Chew [Baby Aspirin 81 mg Chew] 81 mg PO DAILY 06/27/20 [History] Hx Tetanus, Diphtheria Vaccination/Date Given: Yes Hx Influenza Vaccination/Date Given: No Hx Pneumococcal Vaccination/Date Given: No Travel Risk - International Travel Have you traveled outside of the country in past 3 weeks: No - Coronavirus Screening Are you exhibiting any of the following symptoms?: Yes Symptoms: Cough: New Onset Close contact with a COVID-19 positive Pt in past 14-21 Days: No - Vaccine Status Have you recieved a Covid-19 vaccination: Yes Mine Boss: Moderna - Vaccination Dates Date of 2cond Vaccination (if applicable): 07/11 - Review of Systems Constitutional: No Symptoms Eyes: No Symptoms Ears, Nose, & Throat: Throat Pain Respiratory: Cough, Dyspnea Cardiac: No Symptoms Abdominal/Gastrointestinal: No Symptoms Genitourinary Symptoms: No Symptoms Musculoskeletal: No Symptoms Skin: No Symptoms Neurological: No Symptoms Psychological: No Symptoms Endocrine: No Symptoms Hematologic/Lymphatic: No Symptoms Immunological/Allergic: No Symptoms All Other Systems: Reviewed and Negative - Past Medical History Pertinent Past Medical History: Yes Neurological History: No Pertinent History ENT History: No Pertinent History Cardiac History: Hypertension Respiratory History: No Pertinent History Endocrine Medical History: No Pertinent History Musculoskeletal History: No Pertinent History GI Medical History: Hernia History: No Pertinent History Psycho-Social History: No Pertinent History Male Reproductive Disorders: No Pertinent History Other Medical History: abcesses - Past Surgical History Past Surgical History: Yes Neuro Surgical History: No Pertinent History Cardiac: No Pertinent History Respiratory: No Pertinent History Gastrointestinal: No Pertinent History Genitourinary: No Pertinent History Musculoskeletal: Orthopedic Surgery Male Surgical History: No Pertinent History Other Surgical History: hx of fx lt arm - Social History Smoking Status: Former smoker How long have you smoked: 27 Exposure to second hand smoke: Yes Drug Use: none Patient Lives Alone: No - Nursing Vital Signs Nursing Vital Signs: Initial Vital Signs Temperature 98.1 F 05/20/21 20:28 Pulse Rate 78 05/20/21 20:28 Respiratory Rate 22 05/20/21 20:28 Blood Pressure 180/91 05/20/21 20:28 O2 Sat by Pulse Oximetry 100 05/20/21 20:28 Pain Scale Pain Intensity 6 - Physical Exam General Appearance: no apparent distress, alert, anxiety, obese Eye Exam: PERRL/EOMI, eyes nml inspection Ears, Nose, Throat Exam: normal ENT inspection, moist mucous membranes Neck Exam: normal inspection, non-tender, supple, full range of motion Respiratory Exam: normal breath sounds, lungs clear, airway intact, No chest tenderness, No respiratory distress Cardiovascular Exam: regular rate/rhythm, normal heart sounds, normal peripheral pulses Gastrointestinal/Abdomen Exam: soft, normal bowel sounds, No tenderness Rectal Exam: not done Back Exam: normal inspection, normal range of motion, No CVA tenderness, No vertebral tenderness Extremity Exam: normal inspection, normal range of motion, pelvis stable Neurologic Exam: alert, oriented x 3, cooperative, configuration manager II-XII nml as tested, normal mood/affect, nml cerebellar function, nml station & gait, sensation nml Skin Exam: normal color, warm, dry Lymphatic Exam: No adenopathy SpO2 Interpretation: normal SpO2: 100 O2 Delivery: Room Air - Course Nursing assessment & vital signs reviewed: Yes Ordered Tests: Active Orders 24 hr Category Date Time Status COVID AG-BINAX NOW RAPID TEST Stat Lab 05/20/21 20:55 Completed INFLUENZA A+B MARY LOU Stat Lab 05/20/21 20:55 Completed Medication Summary Discontinued Medications Generic Name Dose Route Start Last Admin Trade Name Freq PRN Reason Stop Dose Admin Hydrocodone Bitart/Acetaminophen 10 ml 05/20/21 20:56 05/20/21 21:01 Hydrocodone/Acetaminophen 5 Ml Udcup PO 05/20/21 20:57 10 ml STAT STA Administration Hydrocodone Bitart/Acetaminophen Confirm 05/20/21 20:59 Hydrocodone/Acetaminophen 5 Ml Udcup Administered 05/20/21 21:00 Dose 10 ml .ROUTE .STK-MED ONE Prednisone 20 mg 05/20/21 20:56 05/20/21 21:01 Prednisone 20 Mg Tablet PO 05/20/21 20:57 20 mg STAT ONE Administration Prednisone Confirm 05/20/21 20:59 Prednisone 20 Mg Tablet Administered 05/20/21 21:00 Dose 20 mg .ROUTE .STK-MED ONE Lab/Rad Data: Laboratory Results 05/20/21 05/20/21 Range/Units 20:55 20:44 Influenza Type A Ag NEGATIVE (NEGATIVE) Influenza Type B Ag NEGATIVE (NEGATIVE) SARS-CoV-2 Ag (Rapid) NEGATIVE (NEGATIVE) Group A Strep Antibody NOT DETECTED (NEGATIVE) - Departure Departure Disposition: Home Clinical Impression: Pharyngitis Condition: Stable Critical Care Time: No Referrals: RADHA BECKHAM [Primary Care Provider] - Follow up/PCP as directed Additional Instructions: Drink plenty of fluids. Take your medication as prescribed. Follow-up with your primary care provider for further evaluation and management. Forms: Work/School Release Form Prescriptions: Hydrocodone/Acetaminophen [Hydrocodone-Acetamn 7.5-325/15] 10 ml PO Q8H PRN PRN #120 ml MDD 30 mL PRN Reason: Cough Prednisone 10 mg [Deltasone 10 mg] 10 mg PO TID #12 tablet
[2021-05-20 21:27] LABS: INFLUENZA A NEGATIVE (NEGATIVE); INFLUENZA B NEGATIVE (NEGATIVE)
[2021-05-20 21:28] LABS: COVID AG -BINAX NOW RAPID TEST NEGATIVE (NEGATIVE)
[2021-05-20 21:54] VITALS: BP 151/78; PULSE 74; O2SAT 99
== END 2021-05-20 21:54 | disposition home or self-care (01) ==
LOC: ED 20:20
DX: J02.9 Acute pharyngitis, unspecified (principal); R05.1 Acute cough; R06.02 Shortness of breath; I10 Essential (primary) hypertension; Z79.899 Other long term (current) drug therapy; Z79.891 Long term (current) use of opiate analgesic; Z79.52 Long term (current) use of systemic steroids
CPT/HCPCS: 87400; 87651; 99000; 99283; A9270-GY